=== PATIENT | male | born 1955 | race Caucasian/White ===

== ENCOUNTER 2024-09-12 08:32 | Day surgery (SDC) | payer MEDICARE, BC ==
[2024-09-10 10:43] VITALS: BP 133/81
[~2024-09-12] VITALS: Ht 177.8 cm; Wt 102.7 kg
--- NOTE | ~2024-09-12 | OR ---
[facility] [address], [place] [address] Draft DATE OF OPERATION: 09/12/2024 SURGEON: Gurdeep Grimm DO PREOPERATIVE DIAGNOSES: 1. Direct inguinal hernia. 2. Incarcerated umbilical hernia. POSTOPERATIVE DIAGNOSES: 1. Direct inguinal hernia. 2. Incarcerated umbilical hernia. PROCEDURES PERFORMED: 1. Repair of left inguinal hernia with mesh. 2. Repair of incarcerated umbilical hernia. ANESTHESIA: General. ESTIMATED BLOOD LOSS: Minimal. DRAINS: None. COMPLICATIONS: None. DESCRIPTION OF PROCEDURE: The patient was brought to the operating room, placed in the supine position. After induction of general endotracheal anesthesia, the abdomen was then sterilely shaved, prepped and draped in the usual fashion. Attention was first directed to the umbilical hernia repair. Utilizing linear incision skin was incised with a scalpel. Dissection was continued down to the layers of subcutaneous tissues. Bleedings were controlled with electrocautery. Umbilical defect was identified and circled. The umbilicus was then brought up from the attachment to the hernia sac and the hernia sac was circled entered sharply, incarcerated contents were then placed back intra-abdominally. The margins were freshened sharply and with the Bovie cautery decision to proceed with hernia repair was then made. Umbilical hernia defect was then closed with interrupted figure of eight sutures of 0 Ethibond, this was closed completely. The umbilicus was then reattached to PATIENT NAME: DAVINGURDEEP LISS OPERATIVE REPORT DATE OF : 51 REPORT #: [id number] PHYSICIAN: GURDEEP GRIMM DO PCP: COMFORT ROYAL MD REPORT IS CONFIDENTIAL AND NOT TO BE RELEASED WITHOUT AUTHORIZATION [facility] [address], [place] [address] Draft the anterior fascia with interrupted 3-0 Vicryl. The space in the lateral aspect of umbilicus was closed with 2-0 as well. Subcutaneous tissue was then irrigated . The subcutaneous tissue was closed with 3-0 Vicryl in multilayered fashion, secured with 4-0 Monocryl in a subcuticular fashion. Sterile dressing and umbilical compression was then applied after Dermabond was applied. Attention was then directed to the left inguinal hernia repair. Skin was incised with a scalpel left inguinal canal. Dissection continued brought out of the operative field. . Dissection to proceed with mesh repair was then performed. A textured mesh was then fashioned to fit in the inguinal canals own site. The mesh was then secured to the pubic tubercle with interrupted 0 Ethibond. This was completed and the mesh was secured in circumferential fashion around the medial aspect, lateral aspect, placed back in their anatomic position. Mesh laid flat and in place with good approximation. . External oblique was then reconstructed with interrupted . Subcutaneous tissue was then closed with 3-0 Vicryl in interrupted fashion, skin was closed with 4-0 Monocryl in a subcuticular fashion. Dermabond dressing was applied. The patient tolerated the procedure well and went to recovery room in satisfactory condition. DO GIOVANY Lorenzo/SANDRITA /[id number] Copies: ~ PATIENT NAME: DAVINGURDEEP LISS OPERATIVE REPORT DATE OF : 51 REPORT #: [id number] PHYSICIAN: GURDEEP GRIMM DO PCP: COMFORT ROYAL MD REPORT IS CONFIDENTIAL AND NOT TO BE RELEASED WITHOUT AUTHORIZATION
[~2024-09-12 08:32] MED LIST: BEET ROOT500 MG PO; CEFAZOLIN SODIUM 2 GM/20 ML SYR IV SCH; ELIQUIS5 MG PO; IBLOOD GLUCOSE TEST STRIP 1 EA TEST VI PRN; JARDIANCE10 MG PO; LACTATED RINGER'S 1,000 ML IV SCH; LASIX20 MG PO; LIDOCAINE HCL 1% 5 ML SDV INJ ONE; METOPROLOL SUCC50 MG PO; MULTI VITAMIN1 EACH PO; POTASSIUM CHLO10 ME2 PO; TURMERIC500 M2 PO
[2024-09-12 08:50] VITALS: BP 134/80
[2024-09-12] MEDS ORDERED: fentaNYL citrate 100 MCG/2 ML VIAL ONE (10:10)
[2024-09-12] MEDS ORDERED: ePHEDrine sulfate 50 MG/ML AMP ONE (10:25)
[2024-09-12] MEDS ORDERED: Ropivacaine HCl 0.5% 30 ML VIAL ONE (10:27)
[2024-09-12] MEDS ORDERED: propofoL 200 MG/20 ML VIAL ONE (10:27)
[2024-09-12] MEDS ORDERED: LIDOCAINE HCL 2% 5 ML SDV ONE (10:27)
[2024-09-12] MEDS ORDERED: METOPROLOL TARTRATE 5 MG/5 ML VIAL ONE (11:03)
[2024-09-12] MEDS ORDERED: ACETAMINOPHEN 1,000 MG/100 ML VIAL ONE (11:03)
[2024-09-12] MEDS ORDERED: ondansetron HCL 4 MG/2 ML VIAL ONE (11:04)
[2024-09-12] MEDS ORDERED: DEXAMETHASONE SOD PHOS 4 MG/ML VIAL ONE ×2 (11:05)
[2024-09-12] MEDS ORDERED: SUGAMMADEX SODIUM 200 MG/2 ML ML ONE (11:10)
--- NOTE | 2024-09-12 11:36 | NUR ---
09/12/24 Alia6 Gala Corea 1128-PATIENT ARRIVED TO PACU ON 6L MASK RR EVEN REACTIVE TO VERBAL STIMULI EYES CLOSED. REPORT FROM BALDEV STRAUSS RN . HOB ELEVATED. AFIB HR 70'S IVF INFUSING. DRESSINGS INTACT. 1134-PATIENT HAS EYES CLOSED REPORTS "PAIN 3-4 TO UMBILICUS" 1135-BALDEV STRAUSS RN AT BEDSIDE ADMINISTERING LOCAL TO UMBILICUS. 6L MASK 100% RR EVEN. PATIENT AWAKE. DENIES NAUSEA.
[2024-09-12] MEDS ORDERED: fentaNYL citrate 50 MCG/ML SDV ONE (11:50)
[2024-09-12] MEDS ORDERED: fentaNYL citrate 50 MCG/ML SDV IV PRN (12:00)
[2024-09-12] MEDS ORDERED: NALOXONE HCL 0.4 MG SYR IV PRN (12:00)
[2024-09-12] MEDS ORDERED: droPERidol 5 MG/2 ML VIAL IV PRN (12:00)
[2024-09-12] MEDS ORDERED: ondansetron HCL 4 MG/2 ML VIAL IV PRN (12:15)
[2024-09-12] MEDS ORDERED: HYDROCODONE/ACETA 7.5/325 TAB PO PRN (12:15)
--- NOTE | 2024-09-12 12:15 | NUR ---
PT ARRIVES TO DS FROM PACU VIA STRETCHER. PT REPORTS PAIN IS 5/10 AT THIS TIME, ICE PACK IN PLACE AND STATES IT IS AN ACHEY SENSATION. PT HOB ELEVATED SLIGHTLY FOR EATING CRACKERS AND APPLESAUCE. PILLOW PROVIDED FOR SUPPORT DURING COUGH/DEEP BREATHING. CALL LIGHT WITHIN REACH, PT STATES NO FURTHER NEEDS OR QUESTIONS AT THIS TIME. REPORT RECEIVED FROM KERRIE HEREDIA, WOUND VISUALIZED W/KERRIE HEREDIA.
[2024-09-12 12:19] VITALS: BP 139/85
--- NOTE | 2024-09-12 12:53 | NUR ---
IN PT ROOM FOR PAIN ASSESSMENT AND POST ORAL FOOD. PT REPORTS NO NEW NAUSEA FROM EATING APPLESAUCE/CRACKERS. PT STATES PAIN REMAINS AT 5-6/10 AND WOULD LIKE PRN PAIN MED, GIVEN (SEE EMAR). CALL LIGHT WITHIN REACH, AT BEDSIDE. PT REPORTS NO FURTHER NEEDS OR QUESTIONS AT THIS TIME.
[2024-09-12 13:21] VITALS: BP 127/78
--- NOTE | 2024-09-12 14:00 | NUR ---
IN PT ROOM FOR PAIN ASSESSMENT AND ATTEMPT FOR AMBULATION. PT STATES GAS PAIN STILL PRESENT, BUT WOULD LIKE TO ATTEMP TO USE RESTROOM. PT SITS AT BEDSIDE AND REPORTS NO NAUSEA/DIZZINESS, OR SUBSTANTIAL INCREASE IN PAIN. PT STANDS AT BEDSIDE AND REMAINS STABLE. JOCKSTRAP IN PLACE. PT URINE VOIDS UNMEASURABLE AMOUNT INTO TOILET. PT BACK TO ROOM AND GETTING DRESSED AT THIS TIME. IN ROOM TO ASSIST. CALL LIGHT WITHIN REACH.
--- NOTE | 2024-09-12 14:10 | NUR ---
IN PT ROOM FOR DC EDUCATION AT THIS TIME. PT AND PT STATE VERBAL UNDERSTANDING TO DC EDUCATION AND NO FURTHER QUESTIONS AT THIS TIME. IV DC'ED, WNL. NEW ICE PACK PROVIDED. PT OFF OF UNIT VIA WC BY ONESIMO HEREDIA TO PASSENGER SIDE OF VEHICLE. ALL BELONGINGS IN PT POSSESSION AT THIS TIME.
[2024-09-12 14:17] VITALS: BP 116/74
[2024-09-12] MEDS ORDERED: SEVOFLURANE 250 ML BTL INH ONE (14:50)
== END 2024-09-12 14:30 | disposition home or self-care (01) ==
LOC: DS 08:32
PROVIDERS: ATTEND Surgery
PROC: 0YU60JZ Supplement Left Inguinal Region with Synthetic Substitute, Open Approach (ICD-10-PCS; principal; 2024-09-12 09:50)
PROC: 0WQF0ZZ Repair Abdominal Wall, Open Approach (ICD-10-PCS; 2024-09-12 09:50)
DX: K42.0 Umbilical hernia with obstruction, without gangrene (principal); K40.90 Unilateral inguinal hernia, without obstruction or gangrene, not specified as recurrent; I48.0 Paroxysmal atrial fibrillation; F17.220 Nicotine dependence, chewing tobacco, uncomplicated; F17.290 Nicotine dependence, other tobacco product, uncomplicated; Z79.01 Long term (current) use of anticoagulants; Z79.899 Other long term (current) drug therapy
CPT/HCPCS: 00750; 64425; 76942; A9270; C1781; J0131; J0690; J1100; J2003; J2405; J2704; J2795; J3010; J7121